=== PATIENT | male | born 1940 | race Caucasian/White ===

== ENCOUNTER 2017-03-12 11:52 | Outpatient (CLI) ==
[2017-03-12 12:40] LABS: BASOPHILS # (AUTO) 0.1 K/uL (0-0.2); BASOPHILS % (AUTO) 1.1 % (0.0-3.0); EOSINOPHILS # (AUTO) 0.4 K/ul (0.0-0.7); EOSINOPHILS % (AUTO) 5.3 % (0.0-7.0); HEMATOCRIT 45.6 % (42.0-52.0); HEMOGLOBIN 14.8 g/dl (14.0-18.0); IMMATURE GRANULOCYTE % (AUTO) 0.4 % (0.0-5.0); LYMPHOCYTES # (AUTO) 1.6 K/uL (0.60-3.4); LYMPHOCYTES % (AUTO) 21.4 (10.0-50.0); MEAN CORPUSCULAR HEMOGLOBIN 29.8 pg (27.0-31.0); MEAN CORPUSCULAR HGB CONC 32.5 (31.8-35.4); MEAN CORPUSCULAR VOLUME 91.8 fl (80.0-94.0); MONOCYTES # (AUTO) 0.6 K/uL (0.4-2.0); MONOCYTES % (AUTO) 7.5 (0-10); NEUTROPHILS # (AUTO) 4.8 K/ul (2.0-6.9); NEUTROPHILS % (AUTO) 64.3; PLATELET COUNT 224 10^3/uL (140-440); RED BLOOD COUNT 4.97 10^6/ul (4.70-6.10); WHITE BLOOD COUNT 7.42 K/ul (4.2-10.2)
[2017-03-12 12:47] LABS: BILIRUBIN,URINE Negative (NEGATIVE); KETONES,URINE Negative (NEGATIVE); LEUKOCYTE ESTERASE ,URINE Negative (NEGATIVE); NITRITE,URINE Negative (NEGATIVE); PROTEIN,URINE 1+ (NEGATIVE); URINE, BLOOD Negative (NEGATIVE)
[2017-03-12 12:53] LABS: ADD URINE MICROSCOPIC YES
[2017-03-12 12:55] LABS: ALBUMIN 3.6 g/dL (3.4-5.0); ALBUMIN/GLOBULIN RATIO 0.97; ANION GAP 12.2; BILIRUBIN,TOTAL 0.52 mg/dL (0.00-1.20); BUN/CREATININE RATIO 12.26; CALCIUM 9.6 mg/dL (8.2-10.2); CHOL/HDL RATIO 3.9 (4.5-6.4); CREATININE 1.06 mg/dL (0.60-1.10); POTASSIUM 4.2 mmol/L (3.5-5.1); TOTAL PROTEIN 7.3 g/dL (5.8-8.1)
== END 2017-03-12 11:53 | disposition home or self-care (01) ==
LOC: LAB 11:52
PROVIDERS: ATTEND General Practice
DX: I10 Essential (primary) hypertension (principal); J44.9 Chronic obstructive pulmonary disease, unspecified; I73.9 Peripheral vascular disease, unspecified; L40.9 Psoriasis, unspecified; Z12.5 Encounter for screening for malignant neoplasm of prostate; Z79.899 Other long term (current) drug therapy; Z72.0 Tobacco use
CPT/HCPCS: 36415; 80053; 80061; 81001; 85025

== ENCOUNTER 2017-09-19 12:22 | Outpatient (CLI) ==
[2017-09-19 12:51] LABS: BASOPHILS # (AUTO) 0.1 K/uL (0-0.2); BASOPHILS % (AUTO) 0.8 % (0.0-3.0); EOSINOPHILS # (AUTO) 0.4 K/ul (0.0-0.7); EOSINOPHILS % (AUTO) 4.7 % (0.0-7.0); HEMATOCRIT 46.4 % (42.0-52.0); HEMOGLOBIN 15.2 g/dl (14.0-18.0); IMMATURE GRANULOCYTE % (AUTO) 0.3 % (0.0-5.0); LYMPHOCYTES # (AUTO) 1.4 K/uL (0.60-3.4); LYMPHOCYTES % (AUTO) 15.9 (10.0-50.0); MEAN CORPUSCULAR HEMOGLOBIN 29.7 pg (27.0-31.0); MEAN CORPUSCULAR HGB CONC 32.8 (31.8-35.4); MEAN CORPUSCULAR VOLUME 90.8 fl (80.0-94.0); MONOCYTES # (AUTO) 0.7 K/uL (0.4-2.0); MONOCYTES % (AUTO) 8.5 (0-10); NEUTROPHILS # (AUTO) 6.1 K/ul (2.0-6.9); NEUTROPHILS % (AUTO) 69.8; PLATELET COUNT 205 10^3/uL (140-440); RED BLOOD COUNT 5.11 10^6/ul (4.70-6.10); WHITE BLOOD COUNT 8.75 K/ul (4.2-10.2)
--- NOTE | 2017-09-19 12:59 | DI ---
Exam: Two x-rays of the chest. Comparison: CT chest performed 09/15/2014. Reason for exam: Dyspnea. FINDINGS: No pneumothorax, pleural effusion, or focal consolidation. The cardiac silhouette is unchanged. Kristie ge interpretation is limited by patient body habitus. Degenerative disease is seen in the thoracic s pine. Impression: No acute cardiopulmonary process.
[2017-09-19 13:17] LABS: ALANINE AMINOTRANSFERASE < 6 U/L (12-78); ALBUMIN 3.5 g/dL (3.4-5.0); ALBUMIN/GLOBULIN RATIO 0.95; ALKALINE PHOSPHATASE 77 U/L (56-119); ASPARTATE AMINO TRANSFERASE 9 U/L (15-37); BILIRUBIN,TOTAL 0.57 mg/dL (0.00-1.20); BLOOD UREA NITROGEN 12 mg/dL (7-18); BUN/CREATININE RATIO 10.61; CALCIUM 9.3 mg/dL (8.2-10.2); CARBON DIOXIDE 28 mmol/L (23-31); CHLORIDE 99 mmol/L (98-107); CREATININE 1.13 mg/dL (0.60-1.10); GLUCOSE 104 mg/dL (82-115); SODIUM 139 mmol/L (136-145); TOTAL PROTEIN 7.2 g/dL (5.8-8.1)
== END 2017-09-19 12:23 | disposition home or self-care (01) ==
LOC: RAD 12:22
PROVIDERS: ATTEND General Practice
DX: R05 Cough (principal); R06.09 Other forms of dyspnea; R09.89 Other specified symptoms and signs involving the circulatory and respiratory systems
CPT/HCPCS: 36415; 80053; 83880; 84145; 85025

== ENCOUNTER 2017-09-26 12:34 | Outpatient (CLI) | END 2017-09-26 12:35 | disposition home or self-care (01) | LOC: LAB 12:34 | PROVIDERS: ATTEND General Practice | DX: R06.02 Shortness of breath (principal); R05 Cough; R60.0 Localized edema | CPT/HCPCS: 36415; 83880 ==

== ENCOUNTER 2018-02-27 12:34 | Outpatient (CLI) ==
--- NOTE | 2018-02-27 13:53 | DI ---
EXAM: Two views of the chest. History: Cough. Comparison: Chest radiograph 09/19/2017 Findings: Heart size is borderline enlarged. No definite acute infiltrates. No appreciable pleural fluid and no pneumothorax. No acute osseous abnormalities. Impression: No acute cardiopulmonary process
== END 2018-02-27 12:35 | disposition home or self-care (01) ==
LOC: RAD 12:34
PROVIDERS: ATTEND General Practice
DX: R05 Cough (principal); R09.89 Other specified symptoms and signs involving the circulatory and respiratory systems; I10 Essential (primary) hypertension; G47.33 Obstructive sleep apnea (adult) (pediatric); M54.5 Low back pain; J44.9 Chronic obstructive pulmonary disease, unspecified; E78.5 Hyperlipidemia, unspecified; Z72.0 Tobacco use
CPT/HCPCS: 36415; 80053; 80061; 81001; 85025

== ENCOUNTER 2018-06-29 10:21 | Outpatient (CLI) | END 2018-06-29 10:22 | disposition home or self-care (01) | LOC: LAB 10:21 | PROVIDERS: ATTEND General Practice | DX: J44.9 Chronic obstructive pulmonary disease, unspecified (principal); I10 Essential (primary) hypertension; G47.33 Obstructive sleep apnea (adult) (pediatric); I73.9 Peripheral vascular disease, unspecified; E78.5 Hyperlipidemia, unspecified; Z12.5 Encounter for screening for malignant neoplasm of prostate; Z79.899 Other long term (current) drug therapy; Z72.0 Tobacco use | CPT/HCPCS: 36415; 80053; 80061; 81001; 85025 ==

== ENCOUNTER 2018-12-24 14:45 | Outpatient (CLI) | END 2018-12-24 14:46 | disposition home or self-care (01) | LOC: RHC-LAB 14:45 | PROVIDERS: ATTEND General Practice | DX: E78.5 Hyperlipidemia, unspecified (principal); I10 Essential (primary) hypertension; J44.9 Chronic obstructive pulmonary disease, unspecified; R60.0 Localized edema; Z79.899 Other long term (current) drug therapy | CPT/HCPCS: 36415; 80053; 80061; 81001; 85025 ==

== ENCOUNTER 2019-01-11 13:53 | Outpatient (CLI) | END 2019-01-11 13:54 | disposition home or self-care (01) | LOC: LAB 13:53 | PROVIDERS: ATTEND General Practice | DX: R82.90 Unspecified abnormal findings in urine (principal) | CPT/HCPCS: 81001 ==

== ENCOUNTER 2019-02-25 15:54 | Outpatient (CLI) ==
--- NOTE | 2019-02-25 16:42 | CT ---
EXAM: CT chest without contrast HISTORY: Shortness of breath, cough COMPARISON: 09/15/2014 TECHNIQUE: CT chest performed without intravenous contrast. Coronal and sagittal reformatted images obtained FINDINGS: Thyroid and thoracic inlet appear normal. Heart normal in size. Coronary calcifications. Trace pericardial fluid anteriorly. Aorta normal in caliber. Moderate atherosclerosis. Esophagus unremarkable. Evaluation for lymphadenopathy limited without contrast. No lymphadenopathy identifi ed. There is a gallstone. Visualized portion upper abdomen demonstrates no acute abnormality. No a cute abnormalities of the bones. Degenerative change in the spine. Central airway patent. No pleur al effusion or pneumothorax. Subsegmental atelectasis left lung base. 5 mm nodule right lung base i mage 53 appears new. Bilateral mosaic attenuation suggesting air trapping. No airspace consolidatio n. The several ground-glass opacities in the right upper lobe around images 21 - 22 have been presen t since 2013 and are similar to minimally increased. IMPRESSION: ) 1. Mild left basilar atelectasis. No airspace consolidation. 2. Several small ground-glass opacities in the right upper lobe have been present since 2013, simila r to minimally increased, likely post infectious/inflammatory. 3. New 5 mm pulmonary nodule right lung. Recommend CT chest follow-up in 6 months. 4. Mild bilateral air trapping. 5. Coronary calcifications. 6. Cholelithiasis.
== END 2019-02-25 15:55 | disposition home or self-care (01) ==
LOC: RAD 15:54
PROVIDERS: ATTEND General Practice
DX: R06.02 Shortness of breath (principal); Z72.0 Tobacco use
CPT/HCPCS: 36415; 83880

== ENCOUNTER 2019-02-25 16:07 | Outpatient (CLI) | END 2019-02-25 16:08 | disposition home or self-care (01) | LOC: RHC-LAB 16:07 | PROVIDERS: ATTEND General Practice | DX: R06.02 Shortness of breath (principal); Z72.0 Tobacco use | CPT/HCPCS: 36415; 83880 ==